=== PATIENT | female | born 1980 ===

== ENCOUNTER 2017-08-07 09:28 | Emergency (ER) | payer OTHER ==
[2017-08-07 09:37] VITALS: BMI 20.4
[2017-08-07 09:38] VITALS: BP 105/74; PULSE 80; RESP 17; TEMP 98.8; O2SAT 100
--- NOTE | 2017-08-07 09:56 | ED PDOC ---
HPI: Psych/Substance Abuse Time Seen by Provider: 08/07/17 09:41 Chief Complaint (Nursing): Psychiatric Evaluation Chief Complaint (Provider): Depressed History Per: Patient, EMS History/Exam Limitations: no limitations Onset/Duration Of Symptoms: Days (today) Current Symptoms Are (Timing): Still Present Additional Complaint(s): Pt. went to the police as she was feeling depressed. Denies taking any drugs, meds, alcohol to hurt her self. Not suicidal or homicidal. No weakness, headaches, dizziness. No chest pain. EMS called and brought to the ER. Past Medical History Reviewed: Nursing Documentation, Vital Signs Vital Signs: Last Vital Signs Temp 98.8 F 08/07/17 09:37 Pulse 80 08/07/17 09:37 Resp 17 08/07/17 09:37 BP 105/74 08/07/17 09:37 Pulse Ox 100 08/07/17 09:37 - Medical History PMH: Depression - Surgical History Surgical History: No Surg Hx - Family History Family History: States: Unknown Family Hx - Social History Current smoker - smoking cessation education provided: No Alcohol: None Drugs: Denies - Allergies Allergies/Adverse Reactions: Allergies Allergy/AdvReac Type Severity Reaction Status Date / Time No Known Allergies Allergy Verified 08/07/17 09:47 Review of Systems ROS Statement: Except As Marked, All Systems Reviewed And Found Negative Psych: Positive for: Depression Physical Exam - Reviewed Nursing Documentation Reviewed: Yes Vital Signs Reviewed: Yes - Physical Exam Appears: Positive for: Non-toxic, No Acute Distress Head Exam: Positive for: ATRAUMATIC, NORMAL INSPECTION, NORMOCEPHALIC Skin: Positive for: Normal Color, Warm, DRY Eye Exam: Positive for: EOMI, Normal appearance, PERRL ENT: Positive for: Normal ENT Inspection Neck: Positive for: Normal, Painless ROM Cardiovascular/Chest: Positive for: Regular Rate, Rhythm Respiratory: Positive for: CNT, Normal Breath Sounds Gastrointestinal/Abdominal: Positive for: Normal Exam, Soft. Negative for: Tenderness Back: Positive for: Normal Inspection. Negative for: L CVA Tenderness, R CVA Tenderness Extremity: Positive for: Normal ROM Neurologic/Psych: Positive for: Alert, Oriented - Laboratory Results Result Diagrams: 08/07/17 12:28 08/07/17 12:28 - ECG O2 Sat by Pulse Oximetry: 100 Pulse Ox Interpretation: Normal - Progress ED Course And Treament: 1119: Pt. aggressive but redirectable. Will given ativan to relief anxiety and aggression. 1508: Stable. Crisis saw pt. and [place] [facility] [place]. 1555: Pt. calm during stay and suddenly became agitated and ran out of ER. Security followed pt. and [place] [employer] called. Disposition - Clinical Impression Clinical Impression: Psychoses - Disposition Disposition: Eloped Disposition Time: 15:00 Condition: STABLE
[2017-08-07 12:35] LABS: BASO % 0.3 % (0.0-2.0); EOS % 0.3 % (0.0-4.0); HEMOGLOBIN 14.3 g/dL (12.0-16.0); LYMPH # 0.9 K/uL (1.0-4.3); LYMPH % 11.9 % (20.0-40.0); MEAN CELL VOLUME 88.3 fl (81.0-99.0); MEAN CORPUSCULAR HEMOGLOBIN 28.2 pg (27.0-31.0); MEAN CORPUSCULAR HGB CONC 31.9 g/dL (33.0-37.0); MEAN PLATELET VOLUME 9.8 fl (7.2-11.7); MONO # 0.6 K/uL (0.0-0.8); NEUT # 5.7 K/uL (1.8-7.0); NEUT % 78.5 % (50.0-75.0); NRBC % 0.1 % (0.0-0.0); RBC 5.08 Mil/uL (3.80-5.20); RED CELL DISTRIBUTION WIDTH 14.7 % (11.5-14.5); WHITE BLOOD COUNT 7.2 K/uL (4.8-10.8)
[2017-08-07 12:45] LABS: ALB/GLOB RATIO 1.2 (1.0-2.1); ALBUMIN 4.2 g/dL (3.5-5.0); ALT/SGPT 22 U/L (9-52); AST/SGOT 24 U/L (14-36); BLOOD UREA NITROGEN 14 mg/dl (7-17); CALCIUM 9.2 mg/dL (8.4-10.2); GFR AFRICAN-AMERICAN > 60; GFR NON-AFRICAN AMERICAN > 60
[2017-08-07 15:17] LABS: BARBITURATES, UR NEGATIVE (NEGATIVE); BENZODIAZEPINES, UR NEGATIVE (NEGATIVE); OPIATES, UR NEGATIVE (NEGATIVE); PHENCYCLIDINE, UR NEGATIVE (NEGATIVE)
--- NOTE | 2017-08-08 08:56 | CARD ---
APPROVED REPORT EKG Measurement Heart [id number] <Conclusion> Normal sinus rhythm Normal ECG
== END 2017-08-07 15:55 | disposition left against medical advice (07) ==
LOC: H.ER 09:28
DX: F29 Unspecified psychosis not due to a substance or known physiological condition (principal); F32.9 Major depressive disorder, single episode, unspecified
CPT/HCPCS: 80053; 80320; 80324; 80345; 80346; 80349; 80353; 80358; 80361; 81025; 82948; 83992; 84703; 85025; 93005; 96372; 99282; J2060

== ENCOUNTER 2017-08-07 16:08 | Emergency (ER) | payer OTHER ==
[2017-08-07 16:32] VITALS: BMI 16.5
--- NOTE | 2017-08-07 16:37 | ED PDOC ---
HPI: Psych/Substance Abuse Time Seen by Provider: 08/07/17 16:30 Chief Complaint (Nursing): Psychiatric Evaluation Chief Complaint (Provider): Aggressive behavior History Per: Patient, EMS, Evaluation Specialist (ER staff) History/Exam Limitations: clinical condition Current Symptoms Are (Timing): Still Present Additional Complaint(s): Pt. escaped from ER and brought back by police. Pt. talking in tangets. Per previous record pt. came to the ER for depression evaluation. Had gone to the police department for help. Past Medical History Reviewed: Historical Data, Nursing Documentation, Vital Signs - Medical History PMH: Depression Denies: Diabetes, Hepatitis, HIV, HTN, Seizures, Sexually Transmitted Disease - Family History Family History: States: Unknown Family Hx - Allergies Allergies/Adverse Reactions: Allergies Allergy/AdvReac Type Severity Reaction Status Date / Time No Known Allergies Allergy Verified 08/07/17 09:47 Review of Systems Review Of Systems: ROS cannot be obtained secondary to pt's inabilty to answer questions. Physical Exam - Reviewed Nursing Documentation Reviewed: Yes Vital Signs Reviewed: Yes - Physical Exam Appears: Positive for: Non-toxic, No Acute Distress Head Exam: Positive for: ATRAUMATIC, NORMAL INSPECTION, NORMOCEPHALIC Skin: Positive for: Normal Color, Warm, DRY Eye Exam: Positive for: EOMI, Normal appearance, PERRL ENT: Positive for: Normal ENT Inspection Neck: Positive for: Normal, Painless ROM Cardiovascular/Chest: Positive for: Regular Rate, Rhythm Respiratory: Positive for: CNT, Normal Breath Sounds Gastrointestinal/Abdominal: Positive for: Normal Exam, Soft. Negative for: Tenderness Back: Positive for: Normal Inspection. Negative for: L CVA Tenderness, R CVA Tenderness Extremity: Positive for: Normal ROM. Negative for: Tenderness, Pedal Edema Neurologic/Psych: Positive for: Alert. Negative for: Motor/Sensory Deficits, Facial Droop - Progress ED Course And Treament: 1637: Pt. aggressive and an elopement risk. Threat to self and staff. Restraints applied and 1-1. Ativan 2mg given. Per records, pt. to be [facility] [place]. Labs under previous chart. 1900: Dr. Wooten to fu on crisis and [facility]. UA and cxr pending. Disposition - Clinical Impression Clinical Impression: Psychosis - Patient ED Disposition Is Patient to be Admitted: Transfer of Care - Disposition Disposition: Transfer of Care Disposition Time: 19:07 Condition: FAIR Patient Signed Over To: Sarah Wooten
[2017-08-07] MEDS ORDERED: Sodium Chloride 0.9% 1,000 ML IV STA (17:42)
--- NOTE | 2017-08-07 19:15 | ED PDOC ---
- ECG O2 Sat by Pulse Oximetry: 100 (RA) Pulse Ox Interpretation: Normal - Radiology X-Ray: Interpreted by Me, Viewed By Me X-Ray Interpretation: No Acute Disease Medical Decision Making Medical Decision Makin:00 -Patient endorsed to me by Dr. Aguayo, pending UA, x-ray and crisis evaluation. 21:00 -Patient was very agitated, medicated with ativan. 0200 Urine reviewed: negative for infection. CXR: NAD 0340 Patient accepted by [facility] for unspecified psychotic disorder accepted by [facility] Dr. Taveras. Patient pending [facility] bed availability. 0500 Patient resting comfortably. Vital stable. 0700 Patient resting comfortably. Vitals stable. Patient will be signed out to Dr. Chavarria pending [facility] bed availability. Scribe Attestation: Documented by Loida Louie acting as a scribe for Sarah Wooten MD. Scribe Attestation: All medical record entries made by the Scribe were at my direction and personally dictated by me. I have reviewed the chart and agree that the record accurately reflects my personal performance of the history, physical exam, medical decision making, and the department course for this patient. I have also personally directed, reviewed, and agree with the discharge instructions and disposition. Disposition - Clinical Impression Clinical Impression: Psychosis - POA Present On Arrival: None - Disposition Disposition: Transfer of Care Disposition Time: 07:00 Condition: FAIR Forms: [facility] (Thai) Patient Signed Over To: Myles Chavarria Handoff Comments: pending [facility] bed availability
[2017-08-07 23:22] LABS: SQUAMOUS EPITHIAL 1 /hpf (0-5); URINE BILIRUBIN NEGATIVE (NEGATIVE); URINE BLOOD MODERATE (NEGATIVE); URINE CLARITY SLIGHTY-CLOUDY (Clear); URINE COLOR YELLOW (YELLOW); URINE GLUCOSE (UA) NEG (Normal); URINE HYALINE CAST 0-2 /hpf (0-2); URINE LEUKOCYTE ESTERASE NEG Leu/uL (Negative); URINE PROTEIN NEGATIVE (NEGATIVE); URINE UROBILINOGEN 0.2-1.0 mg/dL (0.2-1.0)
--- NOTE | 2017-08-08 09:06 | RAD ---
HISTORY: psych COMPARISON: No prior. FINDINGS: LUNGS: No active pulmonary disease. PLEURA: No significant pleural effusion identified, no pneumothorax apparent. CARDIOVASCULAR: Normal. OSSEOUS STRUCTURES: No significant abnormalities. VISUALIZED UPPER ABDOMEN: Normal. OTHER FINDINGS: None. IMPRESSION: No active disease. Concordant results with the preliminary interpretation rendered by the emergency department physician procedure.
--- NOTE | 2017-08-08 10:57 | CP.PCM.CON ---
History of Present Illness - History of Present Illness History of Present Illness: Psychiatry consult note CC: "I don't need to be here." HPI: 36 yo female presents acutely bizarre, religiously preoccupied, w/ disorganized speech, +feeling depressed, +delusional beliefs that she has done something wrong, that she is a "bad mother" and that she needs to be cleaned by God. Yesterday the patient eloped from the hospital and had to be brought back. She denies acute AH/VH/SI/HI. Patient has poor insight and judgment into her acute psychotic symptoms. Patient is refusing all psychiatric medications, stating that she believes in natural healing. Collateral from ER flare worker: CW spoke with the patients , Myles, for collateral information. Myles stated that the police called him earlier this morning to let him know that she was at the precinct, and was sent to the hospital. Myles was under the impression that she was going home to where she lives in [place], [place]. They have children together as per Myles from ages, 14, 12, 8, and 7. Myles stated that he has the kids from Monday to Monday. They have been since 2010. Over the weekend, the patient kept apologizing for the past, and her thought content was incoherent. The patient was not able to distinguish what is reality and what is not. In 2003, the patient was diagnosed with PTSD, Anxiety, Bipolar, and Depression, and was placed on medications; however, the patient stopped taking the medication. There have been episodes according to Myles where the patient has been promiscuous due to being manic at that time. The patient is a good mother as per Myles, and she is able to take care of their four children. This past weekend, the patient stayed with him since she said that demons are following her, and she lost her apartment. Myles stated that theres a possibility that she might be seeking attention from him since she was telling him that she loves him which she never makes those statements. The patient needs to be further evaluated, and possibly admitted. MSE: A + O x 3, calm, cooperative but seems guarded and internally preoccupied, mood- depressed, affect- neutral, thought process- tangential, flight of ideas, thought content- +Delusions, denies AH/VH/SI/HI, poor I/J, poor impulse control. Impression: 36 yo female presents acutely psychotic and decompensated, differential diagnosis: Schizophrenia vs Schizoaffective Disorder vs Bipolar Disorder w/ Psychotic Features -Patient accepted to [facility] for involuntary psychiatric admission, pending bed and transfer. Past Patient History - Past Social History Smoking Status: Unknown If Ever Smoked - CARDIAC Hx Hypertension: No - PULMONARY Hx Tuberculosis: No - NEUROLOGICAL Hx Seizures: No - HEMATOLOGICAL/ONCOLOGICAL Hx Human Immunodeficiency Virus (HIV): No - GENITOURINARY/GYNECOLOGICAL Hx Sexually Transmitted Disorders: No - PSYCHIATRIC Hx Depression: Yes - SURGICAL HISTORY Hx Surgeries: No (unknown) - ANESTHESIA Hx Anesthesia: No Meds Allergies/Adverse Reactions: Allergies Allergy/AdvReac Type Severity Reaction Status Date / Time No Known Allergies Allergy Verified 08/07/17 09:47 Results - Vital Signs Recent Vital Signs: Last Vital Signs Temp 98.2 F 08/07/17 16:08 Pulse 71 08/08/17 04:50 Resp 16 08/08/17 04:50 BP 105/74 08/08/17 04:50 Pulse Ox 100 08/08/17 05:55 - Labs Labs: Laboratory Results - last 24 hr 08/07/17 23:07 Urine Color Yellow Urine Clarity Slighty-cloudy Urine pH 6.0 Ur Specific [place] 1.023 Urine Protein Negative Urine Glucose (UA) Neg Urine Ketones 80 Urine Blood Moderate Urine Nitrate Negative Urine Bilirubin Negative Urine Urobilinogen 0.2-1.0 Ur Leukocyte Esterase Neg Urine RBC (Auto) 6 H Urine Microscopic WBC 4 Ur Squamous Epith Cells 1 Hyaline Casts 0-2
--- NOTE | 2017-08-08 16:35 | ED PDOC ---
- ECG O2 Sat by Pulse Oximetry: 100 (RA) Disposition - Clinical Impression Clinical Impression: Psychosis - POA Present On Arrival: None - Disposition Disposition: Transfer of Care Disposition Time: 17:00 Condition: FAIR Forms: [facility] (Mexican) Patient Signed Over To: Mahesh Aguayo
--- NOTE | 2017-08-08 17:49 | ED PDOC ---
- ECG O2 Sat by Pulse Oximetry: 100 (RA) Pulse Ox Interpretation: Normal - Progress ED Course And Treament: 1700: Took over care from Dr. Chavarria. [place]. [place] [facility] P[place] transfer. Pt. stable. Vitals maintained. 1745: Pt. aggressive and threat to staff and self. Will need restaints and ativan and haldol. 2345: Stable. Vitals maintained. Dr. Martin to take over care and fu [place] [facility] [place]. Disposition - Clinical Impression Clinical Impression: Psychosis - POA Present On Arrival: None - Disposition Disposition: Transfer of Care Disposition Time: 23:45 Condition: FAIR Patient Signed Over To: Deon Martin
--- NOTE | 2017-08-09 06:23 | ED PDOC ---
- ECG O2 Sat by Pulse Oximetry: 98 Pulse Ox Interpretation: Normal Medical Decision Making Medical Decision Makin Patient endorsed to me by Dr. Aguayo pending [facility] bed availability. No acute changes 0300 Patient resting comfortably 0500 No acute changes 0700 Pending transfer to [facility], endorsed to day team, Dr. Groves. Disposition - Clinical Impression Clinical Impression: Psychosis - POA Present On Arrival: None - Disposition Disposition: Transfer of Care Disposition Time: 07:00 Condition: FAIR Patient Signed Over To: Romulo Groves III Handoff Comments: pending transfer to [facility]
--- NOTE | 2017-08-09 07:09 | ED PDOC ---
- ECG O2 Sat by Pulse Oximetry: 98 Medical Decision Making Medical Decision Making: received 7am pending [facility] bed availability Disposition - Clinical Impression Clinical Impression: Psychosis - Disposition Condition: FAIR Forms: [employer] (Turkmen)
[2017-08-09 08:11] VITALS: RESP 16
[2017-08-09 10:03] VITALS: BP 103/61; PULSE 91; TEMP 98.4
[2017-08-09 10:49] VITALS: O2SAT 100
== END 2017-08-09 09:45 | disposition short-term general hospital (02) ==
LOC: H.ER 16:08
DX: F23 Brief psychotic disorder (principal); F31.9 Bipolar disorder, unspecified; F43.10 Post-traumatic stress disorder, unspecified; F29 Unspecified psychosis not due to a substance or known physiological condition
CPT/HCPCS: 71045; 81003; 87086; 96372; 96374; 99285; J1630; J2060; J7030

== ENCOUNTER 2018-03-13 19:04 | Emergency (ER) | payer MEDICAID, OTHER ==
[2018-03-13 19:04] VITALS: BMI 16.5
[2018-03-13 19:15] VITALS: RESP 16
[2018-03-13 20:17] LABS: BASO % 0.2 % (0.0-2.0); EOS # 0.2 K/uL (0.0-0.7); LYMPH # 1.7 K/uL (1.0-4.3); LYMPH % 15.6 % (20.0-40.0); MEAN CELL VOLUME 87.9 fl (81.0-99.0); MEAN PLATELET VOLUME 10.1 fl (7.2-11.7); MONO # 0.8 K/uL (0.0-0.8); MONO % 7.6 % (0.0-10.0); NEUT % 74.6 % (50.0-75.0); NRBC % 0.2 % (0.0-0.0); RBC 4.5 Mil/uL (3.80-5.20); RED CELL DISTRIBUTION WIDTH 14.6 % (11.5-14.5); WHITE BLOOD COUNT 10.7 K/uL (4.8-10.8)
[2018-03-13 20:31] LABS: BLOOD UREA NITROGEN 12 mg/dl (7-17); GFR NON-AFRICAN AMERICAN > 60
[2018-03-13 20:42] LABS: BARBITURATES, UR NEGATIVE (NEGATIVE); BENZODIAZEPINES, UR NEGATIVE (NEGATIVE); OPIATES, UR NEGATIVE (NEGATIVE); PHENCYCLIDINE, UR NEGATIVE (NEGATIVE)
--- NOTE | 2018-03-13 20:56 | ED PDOC ---
HPI: Chest Pain Time Seen by Provider: 03/13/18 19:23 Chief Complaint (Nursing): Chest Pain Chief Complaint (Provider): Epigastric pain, chest pain and right shoulder pain History Per: Patient History/Exam Limitations: no limitations Onset/Duration Of Symptoms: Hrs (today) Current Symptoms Are (Timing): Still Present Additional Complaint(s): Juanita Garcia is a 37 year old female, with a past medical history of NSTEMI, who presents to the emergency department complaining of an epigastric pain, chest pain and right shoulder pain onset today. Patient reports she was admitted in the hospital years ago for work up but they never found a cause and attributed her NSTEMI to stress. Patient states she never underwent cath, she is supposed to be taking blood pressure medications and aspirin but self-discontinued. Patient reports pain started today as stomach discomfort and radiated to mid sternum which further radiated to right shoulder and behind the neck. She states symptoms began at rest w/o diaphoresis or shortness of breath. She reports a strong family history of heart disease stating her mother of an MN in her mid 40s. Patient denies any fever, chills or other medical complaints. PMD: None provided. Past Medical History Reviewed: Historical Data, Nursing Documentation, Vital Signs Vital Signs: Last Vital Signs Temp 98.2 F 03/13/18 19:15 Pulse 97 H 03/13/18 19:15 Resp 16 03/13/18 19:15 BP 105/70 03/13/18 19:15 Pulse Ox 99 03/13/18 19:15 - Medical History PMH: Depression Denies: Diabetes, Hepatitis, HIV, HTN, Seizures, Sexually Transmitted Disease - Surgical History Surgical History: No Surg Hx - Family History Family History: States: [place] (mother) - Social History Alcohol: None Drugs: Denies - Home Medications Home Medications: Ambulatory Orders Medication Instructions Recorded RX: Unobtainable 08/09/17 - Allergies Allergies/Adverse Reactions: Allergies Allergy/AdvReac Type Severity Reaction Status Date / Time No Known Allergies Allergy Verified 03/13/18 19:12 Review of Systems ROS Statement: Except As Marked, All Systems Reviewed And Found Negative Constitutional: Negative for: Fever, Chills, Other (diaphoresis) Cardiovascular: Positive for: Chest Pain Respiratory: Negative for: Shortness of Breath Gastrointestinal: Positive for: Abdominal Pain (epigastric) Musculoskeletal: Positive for: Neck Pain, Shoulder Pain (right) Physical Exam - Reviewed Nursing Documentation Reviewed: Yes Vital Signs Reviewed: Yes - Physical Exam Appears: Positive for: No Acute Distress Head Exam: Positive for: ATRAUMATIC, NORMAL INSPECTION, NORMOCEPHALIC Skin: Positive for: Normal Color, Warm, Dry Eye Exam: Positive for: Normal appearance, EOMI, PERRL Neck: Positive for: Normal, Painless ROM, Supple Cardiovascular/Chest: Positive for: Regular Rate, Rhythm. Negative for: Murmur Respiratory: Positive for: Normal Breath Sounds. Negative for: Respiratory Distress Gastrointestinal/Abdominal: Positive for: Normal Exam, Soft. Negative for: Tenderness, Guarding, Rebound Back: Positive for: Normal Inspection. Negative for: L CVA Tenderness, R CVA Tenderness, Vertebral Tenderness Extremity: Positive for: Normal ROM (upper and lower extremities). Negative for: Tenderness, Calf Tenderness, Deformity, Swelling Neurologic/Psych: Positive for: Alert, Oriented. Negative for: Motor/Sensory Deficits - Laboratory Results Result Diagrams: 03/13/18 19:58 03/13/18 19:58 Lab Results: Troponin I < 0.0120 ng/mL (0.00-0.120) 03/13/18 19:58 - ECG Interpretation Of ECG: NSR @ 94bpm with no ST or T wave changes. O2 Sat by Pulse Oximetry: 99 (RA) Pulse Ox Interpretation: Normal Medical Decision Making Medical Decision Making: Time: 19:23 A/P: 36 y/o female with history of NSTEMI presenting with abdominal pain and chest pain. Appears very well with stable vital signs, non ischemic EKG. Symptoms sound atypical for cardiac chest pain, will obtain cardiac biomarkers x2. Initial Plan: --EKG --BMP --Drug screen, urine --Troponin I --Urine --CBC w/ differential --Chest two views [RAD] --Pepcid 20 mg PO --Tylenol 325mg 650 mg PO --Reevaluation 2229 --Patient is feeling well, no longer having chest pain --States that she does not wish for 2nd troponin and instead will followup with her [facility] radar operator/navigator, Dr. Asif --Explained risks of not obtaining 2nd troponin with patient including lack of trending capability to further rule out cardiac involvement, patient understands this risk and still wishes to leave ER --Very well appearing upon discharge Scribe Attestation: Documented by Chidi Eldridge, acting as a scribe for Deon Martin MD Provider Scribe Attestation: All medical record entries made by the Scribe were at my direction and personally dictated by me. I have reviewed the chart and agree that the record accurately reflects my personal performance of the history, physical exam, medical decision making, and the department course for this patient. I have also personally directed, reviewed, and agree with the discharge instructions and disposition. Disposition - Clinical Impression Clinical Impression: Atypical chest pain - Disposition Referrals: Emily Castillo [Outside] Disposition: Routine/Home Disposition Time: 22:30 Condition: STABLE Additional Instructions: PLEASE FOLLOW UP WITH DR. ASIF THIS WEEK! Instructions: Chest Pain That Is Not Caused by the Heart (DC) Forms: Emily Driver (Afghan)
[2018-03-13 22:37] VITALS: BP 127/67; PULSE 79; TEMP 98.1
[2018-03-13 23:36] VITALS: O2SAT 99
--- NOTE | 2018-03-14 10:40 | RAD ---
Date of service: 03/13/2018 HISTORY: chest pain COMPARISON: Chest radiograph dated 08/08/2017. TECHNIQUE: Chest PA and lateral FINDINGS: LUNGS: No active pulmonary disease. PLEURA: No significant pleural effusion identified. No pneumothorax apparent. CARDIOVASCULAR: No aortic atherosclerotic calcification present. Normal cardiac size. No pulmonary vascular congestion. OSSEOUS STRUCTURES: No significant abnormalities. VISUALIZED UPPER ABDOMEN: Right upper quadrant surgical clips. OTHER FINDINGS: None. IMPRESSION: No active disease.
--- NOTE | 2018-03-14 12:16 | CARD ---
APPROVED REPORT Date of service: 03/13/2018 EKG Measurement Heart [id number] <Conclusion> Normal sinus rhythm Normal ECG
--- NOTE | 2018-03-14 12:17 | CARD ---
APPROVED REPORT Date of service: 03/13/2018 EKG Measurement Heart [id number] OR 184P68 [id number] <Conclusion> Normal sinus rhythm Normal ECG
== END 2018-03-13 22:37 | disposition home or self-care (01) ==
LOC: H.ER 19:04
DX: R07.9 Chest pain, unspecified (principal); Z86.59 Personal history of other mental and behavioral disorders; I25.2 Old myocardial infarction